=== PATIENT | female | born 2005 | race Caucasian/White ===

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

== ENCOUNTER → 2024-08-21 15:04 | Outpatient (BNVA) | payer MEDICAID, SELFPAY | PROVIDERS: Visit Provider Nurse Practitioner Family | DX: R11.0 Nausea (principal) | CPT/HCPCS: 80053; 84443; 85025 ==

== ENCOUNTER 2024-09-06 09:07 | Emergency (ER) | payer MEDICAID, SELFPAY ==
[2024-09-06 09:18] VITALS: BP 100/50; PULSE 64; RESP 18; TEMP 36.7; O2SAT 100; BMI 25.4
[2024-09-06 09:57] LABS: Bilirubin Urine Negative (Negative); Blood Urine 3+ (Negative); Glucose Urine UA Negative (Normal); Ketones Urine Negative (Negative); Leukocyte Esterase Urine Trace (Negative); Nitrate Urine Negative (Negative); Protein Urine Trace (Negative); Specific Gravity, Urine 1.026 (1.005-1.030); Urine Appearance Clear (CLEAR); Urine Color Yellow (Yellow); pH Urine 7.5 (5-7)
[2024-09-06 10:03] LABS: Basophils % 0.5 %; Eosinophils # 0.2 10^3/uL (0.0-0.8); Eosinophils % 2.8 %; Hematocrit 37.8 % (36-47); Lymphocytes # 2.1 10^3/uL (1.5-6.5); Lymphocytes % 34.5 %; Mean Corpuscular HGB Conc 33.6 g/dL (30-55); Mean Corpuscular Hemoglobin 29.4 pg (27-33); Mean Corpuscular Volume 87.5 fl (85-98); Mean Platelet Volume 10.7 fL (7.4-10.4); Monocytes # 0.4 10^3/uL (0.2-0.9); Neutrophils # 3.46 10^3/uL (1.8-8.0); Neutrophils % 55.9 %; Nucleated Red Blood Cells % 0 %; Platelet Count 205 10^3/cmm (157-399); Red Blood Count 4.32 10^6/uL (3.85-5.65); Red Cell Distribution Width 12.4 % (12.1-15.1); White Blood Count 6.18 10^3/uL (4.5-13.0)
[2024-09-06 10:07] LABS: Add Urine Microscopic? YES; Hyaline Casts Urine 0-4 /lpf; UA Manual Slide Review YES; WBC Urine 0-4 /hpf (0-5)
[2024-09-06 10:17] LABS: HCG, Serum Qual Negative (Negative)
[2024-09-06 10:24] LABS: Alanine Aminotransferase 12 U/L (0-33); Albumin Level 4.4 g/dL (3.5-5.2); Alkaline Phosphatase 58 U/L (35-105); Aspartate Amino Transferase 14 U/L (0-32); Blood Urea Nitrogen 10 mg/dL (6-20); Calcium 9.3 mg/dL (8.5-10.5); Carbon Dioxide 25 mmol/L (22-29); Chloride 104 mmol/L (98-107); Creatinine Clr Calc Pharmacy 120.1494; Globulin 2.6 g/dL (1.3-4.6); Glomerular Filtration Rate 127.5 mL/min (90-130); Glucose 92 mg/dL (65-115); Lipase 22 U/L (13-60); Osmolality Calculated 285 mOsm/kg (285-295); Sodium 138 mmol/L (136-145); Total Bilirubin 0.3 mg/dL (0.15-1.2)
--- NOTE | 2024-09-06 10:57 | W.ED.GENADLT ---
HPI - General Adult General: Chief complaint: General Medical Stated complaint: n/v, weight loss, Time Seen by Provider: 09/06/24 09:09 Source: patient Mode of arrival: ambulatory Limitations: no limitations History of Present Illness: Patient is a 19-year-old female who presents to ED today for medical evaluation. She states over the past 2 years ( ever since the of my daughter who is 2 ) she has been having intermittent episodes of periumbilical abdominal pain and nausea and vomiting present in the mornings. She feels like she will vomit acid like material. She does feel like she feels better after she vomits. She states sometimes she will force herself to vomit because she knows this will make her abdominal pain improved. She states some mornings she wakes up completely asymptomatic. On the morning she does have pain, nausea, vomiting pain will alleviate after emesis and she remains asymptomatic throughout the day. She has not found any correlation between what she eats. She also has concerns regarding hair loss and weight loss. She states she has followed up with her primary care provider who did labs. Does state she has a RX waiting at the pharmacy prescribed by PCP for stomach acid and plans on filling this today to see if it helps. She has not seen any specialists for her symptoms. She arrives here in no acute distress. She is currently not having pain, nausea, vomiting. Vital signs are stable upon arrival. Onset (ago): year(s) Pain Consistency: intermittent Relieving factors: other (vomiting) Exacerbating factors: none Associated symptoms: Reports nausea and vomiting; Deny chest pain, dyspnea, headache(s), malaise or rash Treatments prior to arrival: none Related Data Home Medications ?Medication ?Instructions ?Recorded ?Confirmed No Known Home Medications 09/06/24 09/06/24 Allergies Allergy/AdvReac Type Severity Reaction Status Date / Time No Known Allergies Allergy Unverified 08/21/24 14:42 Review of Systems Const: Reports: change in weight; Denies: fever(s), chills, body aches, fatigue or malaise Card: Denies: chest pain Resp: Denies: dyspnea GI: Reports: abdominal pain, nausea and vomiting; Denies: hematemesis, diarrhea, constipation, change in bowel habits, hematochezia or melena : Denies: flank pain, difficulty voiding, dysuria, urinary frequency, urinary urgency, urinary hesitancy, hematuria, vaginal discharge or pelvic pain Musc: Denies: back pain Skin/Breast: Denies: rash Neuro: Denies: headache(s) or dizziness PFSH ED PFSH: Medical History No pertinent past medical history Surgical History No history of previous surgery Family History Other Cancer Diabetes Heart disease Hypertension Denies family history of Stroke Social History Smoking and tobacco/nicotine status: former use of tobacco/nicotine (vape) Second hand smoke exposure: No Alcohol intake: never Substance/Drug Use: never Adopted: No Highest education level completed: 9th Grade Pets and animals: Yes Do you think of yourself as: Straight/Heterosexual Current gender identity: Female Physical Exam Const: COMMON NORMALS: no acute distress, average body habitus, patient oriented x3, no limitations, healthy appearing, alert and well nourished GENERAL APPEARANCE: cooperative Eye: COMMON NORMALS: no scleral icterus Neck/C-Spine: COMMON NORMALS: no lymphadenopathy Resp: COMMON NORMALS: normal respiratory effort and clear to auscultation bilaterally AUSCULTATION: clear to auscultation bilaterally Cardio: COMMON NORMALS: regular rate and regular rhythm RATE: regular rate RHYTHM: regular rhythm GI: COMMON NORMALS: Normal to inspection, nondistended, normoactive bowel sounds present, Soft to palpation, No hepatosplenomegaly present and no masses INSPECTION: Yes normal to inspection AUSCULTATION: Yes normoactive bowel sounds PALPATION: Yes Soft to palpation, Yes Tenderness to palpation present (GI) (minor diffuse pain-non surgical abdomen ), No Guarding due to palpation present (GI), No Rigid due to palpation and Yes No hepatosplenomegaly present : COMMON NORMALS: Yes no CVA tenderness BLADDER/KIDNEY EXAM: Yes no CVA tenderness Back/Pelvis: COMMON NORMALS: no CVA tenderness Extremity: GENERAL: Yes normal exam except as noted Neuro: COMMON NORMALS: patient oriented x3, moves all extremities, no focal motor deficits, no sensory deficits noted and gait normal SENSORIUM/ORIENTATION: Yes alert Skin: COMMON NORMALS: no rashes or lesions noted GENERAL SKIN EXAM: no rashes or lesions noted Course Vital Signs: Vital signs: Vital Signs Temperature 98.0 F 09/06/24 09:18 Pulse Rate 64 09/06/24 09:18 Respiratory Rate 18 09/06/24 09:18 Blood Pressure 100/50 09/06/24 09:18 Pulse Oximetry 100 09/06/24 09:18 Oxygen Delivery Me thod Room Air 09/06/24 09:18 MDM - General Adult Medical Decision Making Patient has had symptoms intermittently for 2 years. She does not present with any acute complaint at this time. She clinically appears in no acute distress with stable vital signs. Her workup here overall is unremarkable. UA does have 3+ blood and also contaminated. She does states she ended her menstrual cycle yesterday. Patient has no urinary complaints at this time. Recommend she continue follow-up with primary care. She can trial the prescription medication she has waiting for her at the pharmacy to see if this helps symptoms. Return to ED precautions discussed. Medical Records I reviewed the patient's medical records. Lab Data I reviewed the patient's lab results. 09/06/24 09:55 09/06/24 09:55 Laboratory Results WBC 6.18 10^3/uL (4.5-13.0) 09/06/24 09:55 RBC 4.32 10^6/uL (3.85-5.65) 09/06/24 09:55 Hgb 12.70 g/dL (12.4-14.8) 09/06/24 09:55 Hct 37.8 % (36-47) 09/06/24 09:55 MCV 87.5 fl (85-98) 09/06/24 09:55 MCH 29.4 pg (27-33) 09/06/24 09:55 MCHC 33.6 g/dL (30-55) 09/06/24 09:55 RDW 12.4 % (12.1-15.1) 09/06/24 09:55 Plt Count 205 10^3/cmm (157-399) 09/06/24 09:55 MPV 10.7 fL (7.4-10.4) H 09/06/24 09:55 Neut % (Auto) 55.9 % 09/06/24 09:55 Lymph % (Auto) 34.5 % 09/06/24 09:55 [place] % (Auto) 6.0 % 09/06/24 09:55 Eos % (Auto) 2.8 % 09/06/24 09:55 Baso % (Auto) 0.5 % 09/06/24 09:55 Neut # (Auto) 3.46 10^3/uL (1.8-8.0) 09/06/24 09:55 Lymph # (Auto) 2.1 10^3/uL (1.5-6.5) 09/06/24 09:55 [place] # (Auto) 0.4 10^3/uL (0.2-0.9) 09/06/24 09:55 Eos # (Auto) 0.2 10^3/uL (0.0-0.8) 09/06/24 09:55 Baso # (Auto) 0.0 10^3/uL (0.0-0.1) 09/06/24 09:55 Nucleated RBC % (auto) 0 % 09/06/24 09:55 Nucleated RBCs # 0.0 /100WBC 09/06/24 09:55 Sodium 138 mmol/L (136-145) 09/06/24 09:55 Potassium 4.0 mmol/L (3.5-5.1) 09/06/24 09:55 Chloride 104 mmol/L (98-107) 09/06/24 09:55 Carbon Dioxide 25 mmol/L (22-29) 09/06/24 09:55 Anion Gap 13.0 (5-19) 09/06/24 09:55 BUN 10 mg/dL (6-20) 09/06/24 09:55 Creatinine 0.6 mg/dL (0.5-0.9) 09/06/24 09:55 GFR Calculation 127.5 mL/min (90-130) 09/06/24 09:55 Glucose 92 mg/dL (65-115) 09/06/24 09:55 Calculated Osmolality 285 mOsm/kg (285-295) 09/06/24 09:55 Calcium 9.3 mg/dL (8.5-10.5) 09/06/24 09:55 Total Bilirubin 0.3 mg/dL (0.15-1.2) 09/06/24 09:55 AST 14 U/L (0-32) 09/06/24 09:55 ALT 12 U/L (0-33) 09/06/24 09:55 Alkaline Phosphatase 58 U/L (35-105) 09/06/24 09:55 Total Protein 7.0 g/dL (6.6-8.7) 09/06/24 09:55 Albumin 4.4 g/dL (3.5-5.2) 09/06/24 09:55 Globulin 2.6 g/dL (1.3-4.6) 09/06/24 09:55 Lipase 22 U/L (13-60) 09/06/24 09:55 HCG, Qual Negative (Negative) 09/06/24 09:55 Urine Color Yellow (Yellow) 09/06/24 09:50 Urine Appearance Clear (CLEAR) 09/06/24 09:50 Urine pH 7.5 (5-7) 09/06/24 09:50 Ur Specific [place] 1.026 (1.005-1.030) 09/06/24 09:50 Urine Protein Trace (Negative) A 09/06/24 09:50 Urine Glucose (UA) Negative (Normal) 09/06/24 09:50 Urine Ketones Negative (Negative) 09/06/24 09:50 Urine Blood 3+ (Negative) A 09/06/24 09:50 Urine Nitrate Negative (Negative) 09/06/24 09:50 Urine Bilirubin Negative (Negative) 09/06/24 09:50 Urine Urobilinogen 1.0 mg/dL (Negative) 09/06/24 09:50 Ur Leukocyte Esterase Trace (Negative) A 09/06/24 09:50 Urine RBC 5-10 /hpf (0-2) H 09/06/24 09:50 Urine WBC 0-4 /hpf (0-5) H 09/06/24 09:50 Ur Squamous Epith Cells 5-10 /hpf (0-5) H 09/06/24 09:50 Amorphous Sediment Not Reportable 09/06/24 09:50 Hyaline Casts 0-4 /lpf H 09/06/24 09:50 No radiology studies performed this visit Discharge Plan Discharge Patient Disposition: Home Clinical Impression: Chronic intermittent abdominal pain Condition: Stable Prescriptions: No Action ondansetron 8 mg tablet,disintegrating 8 mg PO Q8H PRN (Reason: nausea and vomiting) Qty: 9 0RF Discharge Orders: Discharge ED (Routine); Ordered 09/06/24 Ordered By: Madeline Hills Referrals: Lilibeth Alonzo FNP-C [Primary Care Provider] - Patient Instructions: Abdominal Pain (ED) Activity Restrictions/Additional Instructions: As we discussed, from an emergency standpoint, I do not have any suspicion for emergent or life-threatening etiology at this time. Blood work and workup here was unremarkable. I would like you to follow-up with primary care for further evaluation into your symptoms. Print Language: [place] Coding Level of Care Code ED Offset Press Operator Apprentice for Rox Valdez
[2024-09-06 11:13] VITALS: BP 111/58; PULSE 83; O2SAT 98
== END 2024-09-06 11:16 | disposition home or self-care (01) ==
PROVIDERS: Emergency Provider Physician Assistant; PCP Nurse Practitioner Family
DX: R10.9 Unspecified abdominal pain (principal); Z87.891 Personal history of nicotine dependence
CPT/HCPCS: 36415; 80053; 81001; 83690; 84703; 85025; 99283

== ENCOUNTER → 2025-01-21 08:59 | Outpatient (BNVA) | payer MEDICAID, SELFPAY | PROVIDERS: PCP Nurse Practitioner Family; Visit Provider Clinical Nurse Specialist Adult Health | DX: R11.2 Nausea with vomiting, unspecified (principal) | CPT/HCPCS: 81025 ==